=== PATIENT | male | born 1995 | race African-American/Black ===

== ENCOUNTER 2022-12-22 12:52 | Emergency (ER) | payer MEDICAID, OTHER ==
[~2022-12-22] VITALS: Ht 190.5 cm; Wt 77.3 kg
[2022-12-22] MEDS ORDERED: LIDOCAINE HCL/PF 1% 10 MG/ML 5ML VIAL INFIL ONE (15:15)
[2022-12-22] MEDS ORDERED: ONDANSETRON 4MG ODT PO ONE ×2 (15:15→15:30)
[2022-12-22] MEDS ORDERED: HYDROCODONE/ACETAMINOPHEN 5/325MG TABLET PO ONE (15:15)
[2022-12-22 15:26] VITALS: BP 96/57
[2022-12-22] MEDS ORDERED: IBUP-2029 MT (15:48)
[2022-12-22] MEDS ORDERED: HYDR-4001 MT (15:48)
[2022-12-22] MEDS ORDERED: DOXY100T2 MT (15:48)
== END 2022-12-22 16:21 | disposition home or self-care (01) ==
LOC: ER 13:16
DX: L02.412 Cutaneous abscess of left axilla (principal)
CPT/HCPCS: 10060; 73030; 87070; 87077; 87205; 99284; J3490; Q0162

== ENCOUNTER 2022-12-25 14:10 | Emergency (ER) | payer OTHER ==
[~2022-12-25] VITALS: Ht 190.5 cm; Wt 77.3 kg
[~2022-12-25 14:10] MED LIST: DOXY100T2 MT; HYDR-4001 MT; IBUP-2029 MT
[2022-12-25 17:07] VITALS: BP 119/68
== END 2022-12-25 17:11 | disposition home or self-care (01) ==
LOC: ER 14:21
DX: L02.412 Cutaneous abscess of left axilla (principal); Z48.00 Encounter for change or removal of nonsurgical wound dressing
CPT/HCPCS: 99281

== ENCOUNTER 2023-06-22 11:15 | Emergency (ER) | payer OTHER ==
[~2023-06-22] VITALS: Ht 182.9 cm; Wt 72.0 kg
[2023-06-22 11:35] VITALS: BP 113/72; PULSE 83; RESP 16; TEMP 98.2; O2SAT 100
[2023-06-22] MEDS ORDERED: CEPH500C2 MT (13:11)
== END 2023-06-22 14:18 | disposition home or self-care (01) ==
LOC: ER 11:15
DX: R22.0 Localized swelling, mass and lump, head (principal)
CPT/HCPCS: 99281; 99283

== ENCOUNTER 2024-04-15 21:34 | Emergency (ER) | payer OTHER ==
[~2024-04-15] VITALS: Ht 182.9 cm; Wt 78.0 kg
[~2024-04-15 21:34] MED LIST changes: +CEPH500C2 MT
[2024-04-15 21:36] VITALS: O2SAT 100
[2024-04-15 21:40] VITALS: TEMP 36.89184; O2SAT 100
[2024-04-15 23:08] VITALS: BP 133/92; PULSE 96; RESP 22
[2024-04-15] MEDS: ONDANSETRON HCL 4MG/2ML INJ IV ONE (23:08)
[2024-04-15] MEDS: MORPHINE SULFATE 4 MG/ML INJ (FOR IV/IM USE) IV ONE (23:08)
== END 2024-04-15 23:21 | disposition left against medical advice (07) ==
LOC: ER 21:34
DX: S49.92XA Unspecified injury of left shoulder and upper arm, initial encounter (principal); S09.90XA Unspecified injury of head, initial encounter; G89.11 Acute pain due to trauma; Z79.899 Other long term (current) drug therapy; W18.39XA Other fall on same level, initial encounter; Y93.89 Activity, other specified; Y92.89 Other specified places as the place of occurrence of the external cause; Y99.8 Other external cause status
CPT/HCPCS: 99284; 96374; 96375; 73030; J2405; J2270

== ENCOUNTER 2024-04-16 12:05 | Emergency (ER) | payer OTHER ==
[~2024-04-16] VITALS: Ht 180.3 cm; Wt 60.0 kg
[2024-04-16 12:27] VITALS: TEMP 98.2; O2SAT 99
[2024-04-16 14:52] VITALS: BP 110/69; PULSE 69; RESP 18
[2024-04-16] MEDS: HYDROCODONE/ACETAMINOPHEN 5/325MG TABLET PO ONE (14:52)
== END 2024-04-16 15:02 | disposition home or self-care (01) ==
LOC: ER 12:10
DX: S49.92XA Unspecified injury of left shoulder and upper arm, initial encounter (principal); Z86.59 Personal history of other mental and behavioral disorders; Z13.9 Encounter for screening, unspecified; Y04.0XXA Assault by unarmed brawl or fight, initial encounter; Y93.89 Activity, other specified; Y92.89 Other specified places as the place of occurrence of the external cause; Y99.8 Other external cause status
CPT/HCPCS: 99283

== ENCOUNTER 2025-03-31 15:48 | Emergency (ER) | payer SELFPAY ==
[~2025-03-31] VITALS: Ht 190.5 cm; Wt 69.0 kg
[2025-03-31 15:53] VITALS: O2SAT 100
[2025-03-31] MEDS ORDERED: IBUP-2029 MT (16:13)
[2025-03-31] MEDS ORDERED: AMOX1TAB16 MT (16:13)
[2025-03-31 16:21] VITALS: BP 104/68; PULSE 72; RESP 14; TEMP 36.9; O2SAT 100
== END 2025-03-31 16:22 | disposition home or self-care (01) ==
LOC: ER 15:48
DX: K04.7 Periapical abscess without sinus (principal); Z79.899 Other long term (current) drug therapy
CPT/HCPCS: 99283